=== PATIENT | female | born 1935 | race Caucasian/White ===

== ENCOUNTER 2023-01-15 12:30 | Outpatient (REF) | payer MEDICARE, OTHER, SELFPAY ==
--- NOTE | ~2023-01-15 | US_ITS ---
EXAMINATION: US RETROPERITONEAL LIMITED (RENAL ONLY) CLINICAL INFORMATION: Calculus of kidney. COMPARISON: Renal ultrasound 05/05/2022 and 02/16/2019. CT abdomen and pelvis 07/13/2016. TECHNIQUE: Real-time imaging of the kidneys. FINDINGS: RIGHT KIDNEY: 8.2 x 3.3 x 3.0 cm (SAG x AP x TRV). The kidney is normal in size, contour, and echogenicity. Renal cortical thickness is normal. No hydronephrosis. There is an anechoic cyst mid/lower pole measuring 0.6 x 0.7 x 0.5 cm. There is an echogenic stone or calcification in upper pole measuring 0.5 x 0.4 x 0.6 cm. There is no twinkle artifact. LEFT KIDNEY: 8.7 x 5.0 x 4.3 cm (SAG x AP x TRV). The kidney is normal in size, contour, and echogenicity. Renal cortical thickness is normal. No calculi or focal parenchymal lesions. No hydronephrosis. US/US renal BI IMPRESSION: 1. Nonobstructive echogenic stone versus calcification in upper pole right kidney. 2. There is no caliectasis or hydronephrosis in either kidney.
[2023-01-15 13:10] LABS: MANUAL DIFF FLAG NO
[2023-01-15 14:02] LABS: Basophils Absolute Auto 0.1 X10*3/uL (0.0-0.2); Basophils Percent Auto 1.1 % (0-2); Eosinophils Absolute Auto 0.2 X10*3/uL (0.0-0.4); Hematocrit 44.9 % (37.0-47.0); Imm Gran Abs Auto 0.14 X10*3/uL (0.00-0.03); Imm Gran Pct Auto 1.2 % (0.0-0.4); Lymphocytes Absolute Auto 3.8 X10*3/uL (1.2-4.9); Lymphocytes Percent Auto 32.6 % (20-40); Mean Corpuscular HGB Conc 31.2 g/dl (31.0-35.0); Mean Corpuscular Hemoglobin 25.5 pg (27.0-33.0); Mean Corpuscular Volume 81.8 fL (80.0-98.0); Mean Platelet Volume 10.8 fL (9.4-12.3); Monocytes Absolute Auto 0.9 X10*3/uL (0.1-1.2); Monocytes Percent Auto 7.4 % (2-11); Neutrophils Absolute Auto 6.5 x10*3/uL (2.0-8.3); Neutrophils Percent Auto 55.7 % (45-73); Platelet Count 292 X10*3/uL (160-400); Red Blood Count 5.49 X10*6/uL (4.20-5.50); Red Cell Distribution Width 16.2 % (11.0-16.0); White Blood Count 11.7 X10*3/uL (4.8-10.8)
[2023-01-15 14:31] LABS: Iron 40 mcg/dL (30-160); Percent Iron Saturation 10 % (15-50); Total Iron Binding Capacity 383 mcg/dL (228-428); Unsaturated Iron Binding 343 ug/dL
== END 2023-01-15 12:31 | disposition home or self-care (01) ==
LOC: HO.US 12:30
PROVIDERS: PCP Student in an Organized Health Care Education/Training Program; Visit Provider Urology
DX: N20.0 Calculus of kidney (principal); Z13.89 Encounter for screening for other disorder
CPT/HCPCS: 36415; 76775; 83540; 85025

== ENCOUNTER → 2023-02-18 13:21 | Outpatient (BNVA) | payer MEDICARE, OTHER, SELFPAY | PROVIDERS: PCP Student in an Organized Health Care Education/Training Program; Referring Provider Student in an Organized Health Care Education/Training Program; Visit Provider Internal Medicine Cardiovascular Disease | DX: I35.0 Nonrheumatic aortic (valve) stenosis (principal); I25.10 Atherosclerotic heart disease of native coronary artery without angina pectoris; I95.1 Orthostatic hypotension | CPT/HCPCS: 93005; 99212 ==

== ENCOUNTER → 2023-03-01 13:25 | Outpatient (BNVA) | payer MEDICARE, OTHER, SELFPAY | PROVIDERS: PCP Student in an Organized Health Care Education/Training Program; Visit Provider Urology | DX: N20.0 Calculus of kidney (principal); N32.81 Overactive bladder | CPT/HCPCS: 99212 ==

== ENCOUNTER 2023-04-08 13:04 | Outpatient (REF) | payer MEDICARE, OTHER, SELFPAY ==
[2023-04-08 13:29] LABS: MANUAL DIFF FLAG NO
[2023-04-08 13:49] LABS: INTERNATIONAL NORM RATIO 0.8 (0.9-1.1); Prothrombin Time 9.3 SEC (10.0-13.1)
[2023-04-08 13:53] LABS: Basophils Absolute Auto 0.1 X10*3/uL (0.0-0.2); Eosinophils Absolute Auto 0.3 X10*3/uL (0.0-0.4); Eosinophils Percent Auto 2.4 % (0-4); Hematocrit 48.5 % (37.0-47.0); Hemoglobin 15.2 g/dl (12.0-16.0); Imm Gran Abs Auto 0.19 X10*3/uL (0.00-0.03); Imm Gran Pct Auto 1.7 % (0.0-0.4); Lymphocytes Absolute Auto 4.5 X10*3/uL (1.2-4.9); Lymphocytes Percent Auto 39.5 % (20-40); Mean Corpuscular HGB Conc 31.3 g/dl (31.0-35.0); Mean Corpuscular Hemoglobin 27.4 pg (27.0-33.0); Mean Corpuscular Volume 87.5 fL (80.0-98.0); Mean Platelet Volume 10.7 fL (9.4-12.3); Monocytes Absolute Auto 0.8 X10*3/uL (0.1-1.2); Monocytes Percent Auto 7.1 % (2-11); Neutrophils Absolute Auto 5.5 x10*3/uL (2.0-8.3); Neutrophils Percent Auto 48.3 % (45-73); Platelet Count 291 X10*3/uL (160-400); Red Blood Count 5.54 X10*6/uL (4.20-5.50); Red Cell Distribution Width 18.5 % (11.0-16.0); White Blood Count 11.4 X10*3/uL (4.8-10.8)
[2023-04-08 15:00] LABS: Iron 61 mcg/dL (30-160); Percent Iron Saturation 16 % (15-50); Total Iron Binding Capacity 388 mcg/dL (228-428); Unsaturated Iron Binding 327 ug/dL
[2023-04-08 15:33] LABS: Anion Gap 13 (12-20); Blood Urea Nitrogen 16 mg/dL (9-16); Calcium 9.3 mg/dL (8.4-10.2); Carbon Dioxide 26 mmol/L (22-29); Chloride 108 mmol/L (96-108); Estimated Glomerular Filt Rate 56; Glucose Random 84 mg/dL (60-115); Potassium 3.7 mmol/L (3.3-5.1); Sodium 143 mmol/L (135-145)
== END 2023-04-08 13:05 | disposition home or self-care (01) ==
LOC: HO.10HDL 13:04
PROVIDERS: Absent Provider Nurse Practitioner Family; PCP Family Medicine; Visit Provider Family Medicine
DX: I35.0 Nonrheumatic aortic (valve) stenosis (principal); D50.9 Iron deficiency anemia, unspecified; R06.02 Shortness of breath; I10 Essential (primary) hypertension; Z95.1 Presence of aortocoronary bypass graft
CPT/HCPCS: 36415; 80048; 83540; 85025; 85610

== ENCOUNTER 2023-05-13 12:49 | Outpatient (AMB) | payer MEDICARE, OTHER, SELFPAY ==
--- NOTE | 2023-05-13 13:03 | MHC.OFFVIS ---
Intake Vital Signs 05/13/23 13:04 Height 5 ft 2 in Weight 169 lb 12.095 oz BMI 31.0 BP 120/80 Blood Pressure Location Lt brachial Position Sitting Pulse 92 Intake Visit Reasons: 2 mth f/up Intake Note: 2 month follow-up c/o sob still waiting on TAVR Powerhouse Laborer Required: No Housekeeper Caregiver: Housekeeper Caregiver Present Accompanied by: Son Allergies adhesive tape [ADHESIVE TAPE] Allergy (Unknown, Verified 03/01/23 13:38) RASH iodine [IODINE] Allergy (Unknown, Verified 03/01/23 13:38) UNKNOWN Oxvpzuo-MJO-SxJ Reductase Inhibitor [VMJVRZW-EXB-EJK REDUCTASE INHIBITOR] Allergy (Unknown, Verified 03/01/23 13:38) MUSCLE PAIN IN LEGS amoxicillin [Prevpac] Adverse Reaction (Unknown, Verified 03/01/23 13:38) Unknown aspirin Adverse Reaction (Unknown, Verified 03/01/23 13:38) high doses atenolol Adverse Reaction (Unknown, Verified 03/01/23 13:38) Unknown atorvastatin [Lipitor] Adverse Reaction (Unknown, Verified 03/01/23 13:38) Unknown clarithromycin [Prevpac] Adverse Reaction (Unknown, Verified 03/01/23 13:38) Unknown ezetimibe [Zetia] Adverse Reaction (Unknown, Verified 03/01/23 13:38) Unknown lansoprazole [Prevpac] Adverse Reaction (Unknown, Verified 03/01/23 13:38) Unknown meloxicam [Mobic] Adverse Reaction (Unknown, Verified 03/01/23 13:38) Unknown niacin [Niaspan Extended-Release] Adverse Reaction (Unknown, Verified 03/01/23 13:38) Unknown sertraline [Zoloft] Adverse Reaction (Unknown, Verified 03/01/23 13:38) Unknown adhesive Allergy (Unknown, Uncoded 03/01/23 13:38) rash/ itching GRASS Allergy (Unknown, Uncoded 03/01/23 13:38) ITCHY/SWELLING Effexor Adverse Reaction (Unknown, Uncoded 03/01/23 13:38) Unknown Medication List - Last Reconciled 05/13/23 by Chase Dewitt MD blood sugar diagnostic As directed budesonide-formoterol 160-4.5 mcg/actuation inhalation clopidogrel (Plavix) 75 mg PO DAILY 90 days duloxetine 60 mg PO DAILY gabapentin 300 mg PO BEDTIME hydralazine 20 mg PO BEDTIME insulin aspart U-100 subcut insulin degludec 40 units subcut BEDTIME insulin syringe-needle U-100 As directed lancets As directed metformin 500 mg PO BID metoprolol tartrate 25 mg PO BID pen needle, diabetic As directed prednisone 10 mg PO QAM HPI HPI Comments History of Present Illness Details Tiffani comes for follow-up. She was evaluated by Dr. Burciaga for transcatheter aortic valve replacement. She is still waiting for CT scan of her chest as well as cardiothoracic surgical appointment. She is getting more symptoms with worsening shortness of breath and exertion. Denies any orthopnea, PND, significant leg edema. No lightheadedness, syncope. She had a recent fall which was accidental. She did not lose consciousness. Denies any chest discomfort. [facility] Medical History Aortic stenosis CAD (coronary artery disease) HTN (hypertension) Hyperlipidemia Orthostatic hypotension dysautonomic syndrome Surgical History Hx of CABG Family History Father HTN (hypertension) Mother HTN (hypertension) Review of Systems Const Denies chills, Denies fatigue, Denies fever(s), Denies frequent falls, Denies weakness, Denies weight gain and Denies weight loss ENT Denies dizziness Card Denies chest pain, Denies leg edema, Denies lightheadedness, Denies palpitations, Denies dyspnea, Denies dyspnea on exertion, Denies orthopnea and Denies other (loss of consciousness) Resp Denies cough, Denies dyspnea and Denies dyspnea on exertion GI Denies hematochezia and Denies change in stool character Musc Denies abnormal gait, Denies muscle weakness, Denies numbness, Denies radiating pain into limb and Denies tingling Neuro Denies abnormal gait, Denies dizziness, Denies frequent falls, Denies numbness, Denies tingling and Denies weakness Endo Denies fatigue and Denies palpitations Physical Exam Vital Signs: Last Vital Signs Pulse 92 05/13/23 13:04 BP 120/80 05/13/23 13:04 BMI result Body Mass Index 31.0 Const General: cooperative, healthy appearing, no acute distress and well developed Nutritional Appearance: average body habitus and well nourished Orientation/consciousness: patient oriented x3 Limitations: wheelchair HEENT Head: Yes normocephalic Ears: hearing grossly normal bilaterally Eyes General: appearance normal, both eyes and all related structures Neck Neck: Yes normal visual inspection Chest Chest palpation & inspection: normal inspection of the chest Resp Effort & Inspection: normal respiratory effort and no cough Cardio Jugular venous distension: no JVD Palpation: normal PMI Rate: regular rate Rhythm: regular rhythm Heart sounds: S1 normal heart sound present, S2 normal heart sound present, no click, no gallops and Murmur heart sound present systolic late, decrescendo and crescendo GI Auscultation: normal bowel sounds Skin General skin exam: ecchymosis Neuro General: patient oriented x3 and no focal motor deficits Extrem General: Yes no clubbing, cyanosis or edema and Yes other (Wound on the left arm which was then close together with Steri-Strips) Psych Appearance: grossly normal and well kempt Mental Status: mental status grossly normal Speech and movement: Normal speech and movement present Affect: normal affect Attitude: cooperative Thought process: Normal thought process present Insight: Good insight present (Psych) Judgement: Good judgement present (Psych) Assessment & Plan Assessment & Plan (1) Aortic stenosis: Code(s): I35.0 - Nonrheumatic aortic (valve) stenosis Plan: Aortic stenosis with advancing symptoms. Patient is awaiting complete evaluation for transcatheter aortic valve replacement. I do not think she has a surgical candidate given her advanced age, frailty and redo surgery. Have requested Dr. Burciaga to hopefully schedule her for transcatheter aortic valve replacement as soon as possible once her CT scan as completed to avoid further complication related to her severe aortic stenosis is especially development of heart failure syndrome. Continue aggressive risk factor modification. Advised to call me with worsening symptoms. (2) CAD (coronary artery disease): Code(s): I25.10 - Atherosclerotic heart disease of [place] coronary artery without angina pectoris Plan: CAD with severe [place] three-vessel disease with occluded graft to the circumflex territory. Currently having no symptoms of angina. Continue aggressive medical therapy. Continue Plavix therapy for life. Blood pressure is currently well optimized. Continue aggressive management of diabetes goal hemoglobin A1c less than 7%. Has not tolerated statins in the past has not interested in alternative lipid lowering therapy. (3) Orthostatic hypotension dysautonomic syndrome: Code(s): I95.1 - Orthostatic hypotension Plan: Prior history of markedly labile blood pressure with prior history of orthostatic syncope. Currently her fall was related to accidental fall and not related to syncope. Continue current regimen for her orthostatic hypertension. Advise to avoid salt loading. Advised to maintain adequate hydration. Orthostatic precautions were discussed. Will follow up in the clinic in 6 weeks time, sooner p.r.n.. Thank you for allowing me to partake in her care Coding Level of Care Code Est Pt Level 4 (90332) Diagnoses Aortic stenosis I35.0 CAD (coronary artery disease) I25.10 Orthostatic hypotension dysautonomic syndrome I95.1
[2023-05-13 13:04] VITALS: BP 120/80; PULSE 92; BMI 31.0
== END 2023-05-13 13:38 | disposition home or self-care (01) ==
PROVIDERS: Visit Provider Internal Medicine Cardiovascular Disease
DX: I35.0 Nonrheumatic aortic (valve) stenosis (principal); I25.10 Atherosclerotic heart disease of native coronary artery without angina pectoris; I95.1 Orthostatic hypotension
CPT/HCPCS: 99214

== ENCOUNTER → 2023-05-13 12:49 | Outpatient (BNVA) | payer MEDICARE, OTHER, SELFPAY | PROVIDERS: Visit Provider Internal Medicine Cardiovascular Disease | DX: I35.0 Nonrheumatic aortic (valve) stenosis (principal); I25.10 Atherosclerotic heart disease of native coronary artery without angina pectoris; I10 Essential (primary) hypertension; I95.1 Orthostatic hypotension; Z95.1 Presence of aortocoronary bypass graft | CPT/HCPCS: 99212 ==

== ENCOUNTER 2023-05-31 13:50 | Outpatient (AMB) | payer MEDICARE, OTHER, SELFPAY ==
--- NOTE | 2023-05-31 12:16 | A.OFFVIS_ITS ---
Intake Intake Visit Reasons: 3m/litholink Intake Note: Patient presents today for a telephone follow-up Meds- None Allergies to Antibiotic- No Known Allergies Blood Thinner- None Charge Coordinator Required: No Allergies adhesive tape [ADHESIVE TAPE] Allergy (Unknown, Verified 03/01/23 13:38) RASH iodine [IODINE] Allergy (Unknown, Verified 03/01/23 13:38) UNKNOWN Zbthtvy-VWR-LbU Reductase Inhibitor [AADOLQO-WHI-QCO REDUCTASE INHIBITOR] Allergy (Unknown, Verified 03/01/23 13:38) MUSCLE PAIN IN LEGS amoxicillin [Prevpac] Adverse Reaction (Unknown, Verified 03/01/23 13:38) Unknown aspirin Adverse Reaction (Unknown, Verified 03/01/23 13:38) high doses atenolol Adverse Reaction (Unknown, Verified 03/01/23 13:38) Unknown atorvastatin [Lipitor] Adverse Reaction (Unknown, Verified 03/01/23 13:38) Unknown clarithromycin [Prevpac] Adverse Reaction (Unknown, Verified 03/01/23 13:38) Unknown ezetimibe [Zetia] Adverse Reaction (Unknown, Verified 03/01/23 13:38) Unknown lansoprazole [Prevpac] Adverse Reaction (Unknown, Verified 03/01/23 13:38) Unknown meloxicam [Mobic] Adverse Reaction (Unknown, Verified 03/01/23 13:38) Unknown niacin [Niaspan Extended-Release] Adverse Reaction (Unknown, Verified 03/01/23 13:38) Unknown sertraline [Zoloft] Adverse Reaction (Unknown, Verified 03/01/23 13:38) Unknown adhesive Allergy (Unknown, Uncoded 03/01/23 13:38) rash/ itching GRASS Allergy (Unknown, Uncoded 03/01/23 13:38) ITCHY/SWELLING Effexor Adverse Reaction (Unknown, Uncoded 03/01/23 13:38) Unknown HPI HPI Comments History of Present Illness Details Tiffani is an 87-year-old female who presents today via tele-visit for a follow up for kidney stones. 05/31/2023? She was last seen by me on 03/01/2023. Today I reviewed 24-hour urine results - Total volume 750 mL, Calcium 66 mg; Oxalate 25 mg, Sodium 48, Citrate 514 mg.? I reviewed the renal US results from 01/15/2023 revealed 5-6 mm stone in the upper pole of the right kidney. She mentions urinary leakage into the pads. She reports that her pads were soaked throughout the day. Review of chart: --------Last visit: 03/01/2023? Tiffani is an 87-year-old female who presents to the office for follow-up of kidney stones, OAB, and recurrent UTI's. LV--10/23/22--PCP-Jose Alberto Bryant MD, previously seen by Dr. Cameron in 01/15/2021, CoMorbidity - DM, was on vesicare 5 mg daily for OAB. renal sono 04/2022--- bilateral stones 03/01/23-- The patient states she visited her cad designer drafter for complaints of shortness of breath and was diagnosed with non-functional aortic valve. The patient states she is not taking Vesicare 5 mg daily. She states bladder symptoms are stable. The patient is not takeing vitamin B6. The patient regularly takes calcium and vitamin D supplement. US--01/15/23-- possible stone in the right kidney about 5.6 mm. Evaluation today: UA--Blood: negative, leukocytes: negative. Plan: Nephrolithiasis.? vitamin B6 100 mg once a day. Discussed to consume adequate amount of water daily. The patient can add lemon to the water. Discussed limiting sodium intake. Discussed Low oxalate diet OAB. Currently patient not using bladder medication. Pads prn. behavioral modifications.?Timed voiding Tele-health follow-up in 3 months for discussion of 24 hour test results. 05/31/23-Plan: Scheduled CAT scan in 8-9 months. Tele-health follow up in 10 months. [facility] Medical History Aortic stenosis CAD (coronary artery disease) HTN (hypertension) Hyperlipidemia Orthostatic hypotension dysautonomic syndrome Surgical History Hx of CABG Family History Father HTN (hypertension) Mother HTN (hypertension) Review of Systems Const All systems reviewed & are unremarkable except as noted in HPI and below Reports no additional complaints Eyes Reports no additional complaints ENT Reports no additional complaints Card Denies dyspnea Resp Denies cough and Denies dyspnea GI Reports no additional complaints Reports no additional complaints Musc Reports no additional complaints Skin/Breast Denies rash and Denies unusual bruising Neuro Reports no additional complaints Psych Reports no additional complaints Endo Reports no additional complaints Jerome/Lymph Reports no additional complaints Aller/Immun Reports no additional complaints Results Reviewed Results Reviewed: Date of Service: 01/15/23 EXAMINATION: US RETROPERITONEAL LIMITED (RENAL ONLY) CLINICAL INFORMATION: Calculus of kidney. COMPARISON: Renal ultrasound 05/05/2022 and 02/16/2019. CT abdomen and pelvis 07/13/2016. FINDINGS: RIGHT KIDNEY: 8.2 x 3.3 x 3.0 cm (SAG x AP x TRV). The kidney is normal in size, contour, and echogenicity. Renal cortical thickness is normal. No hydronephrosis. There is an anechoic cyst mid/lower pole measuring 0.6 x 0.7 x 0.5 cm. There is an echogenic stone or calcification in upper pole measuring 0.5 x 0.4 x 0.6 cm. There is no twinkle artifact. LEFT KIDNEY: 8.7 x 5.0 x 4.3 cm (SAG x AP x TRV). The kidney is normal in size, contour, and echogenicity. Renal cortical thickness is normal. No calculi or focal parenchymal lesions. No hydronephrosis. IMPRESSION: 1. Nonobstructive echogenic stone versus calcification in upper pole right kidney. 2. There is no caliectasis or hydronephrosis in either kidney. Assessment & Plan Assessment & Plan (1) Urinary incontinence: Code(s): R32 - Unspecified urinary incontinence (2) Right kidney stone: Code(s): N20.0 - Calculus of kidney Plan Scheduled CAT scan in 8-9 months. Tele-health follow up in 10 months. Orders: Orders CT abdomen pelvis wo IV con 9 Months N20.0 - Calculus of kidney Patient Instructions: The patient had an opportunity to ask questions regarding treatment plan. All questions were answered. Imaging, Laboratory studies and physical exam results were discussed and reviewed in detail. No major barriers to understanding were identified. The patient expressed understanding and agreement with the above treatment plan.? ? ? The patient is aware they should contact our office by phone for worsening of their current condition or the appearance of new symptoms. Compliance is encouraged with any medications and followup testing that is ordered.? ? ? It is a privilege to be allowed the opportunity to participate in the urologic care of your patient. If you have any questions or concerns regarding treatment for the above conditions please do not hesitate to contact me. The office telephone contact is [phone].? ? ? This note is constructed in part using voice recognition software. While every effort has been made to ensure accuracy plant operator control room operator errors may have been included.? ? ? Yours sincerely,? ? ? Néstor Vernon MD? ? Telehealth Telehealth Location of provider rendering services: practice address Location of patient: address on file Patient Identification confirmed using: Name, : Yes Telehealth method: voice only Patient verbally consented to treatment: Yes Patient verbally consented to billing insurance company: Yes Patient informed of any privacy concerns related to visit: Yes Minutes spent on Phone/Video with Pt.: 15 Coding Level of Care Code Tele Est Pt Level 3 (23062) Diagnoses Urinary incontinence R32 Right kidney stone N20.0
== END 2023-05-31 14:40 | disposition home or self-care (01) ==
LOC: HO.HUSH 13:51
PROVIDERS: PCP Family Medicine; Visit Provider Urology
DX: R32 Unspecified urinary incontinence (principal); N20.0 Calculus of kidney
CPT/HCPCS: 99442

== ENCOUNTER 2023-07-20 13:36 | Outpatient (AMB) | payer MEDICARE, OTHER, SELFPAY ==
--- NOTE | 2023-07-20 13:39 | MHC.OFFVIS ---
Intake Vital Signs 07/20/23 13:40 Height 5 ft 2 in Weight 165 lb 5.547 oz BMI 30.2 BP 120/62 Blood Pressure Location Lt brachial Position Sitting Pulse 88 Intake Visit Reasons: f/up Intake Note: Follow-up feeling ok Electrical Engineering Technician Required: No Sap Functional Analyst: Sap Functional Analyst Present Accompanied by: Son Allergies adhesive tape [ADHESIVE TAPE] Allergy (Unknown, Verified 03/01/23 13:38) RASH iodine [IODINE] Allergy (Unknown, Verified 03/01/23 13:38) UNKNOWN Kejguln-LVP-AvV Reductase Inhibitor [CLILTOC-COG-ILP REDUCTASE INHIBITOR] Allergy (Unknown, Verified 03/01/23 13:38) MUSCLE PAIN IN LEGS amoxicillin [Prevpac] Adverse Reaction (Unknown, Verified 03/01/23 13:38) Unknown aspirin Adverse Reaction (Unknown, Verified 03/01/23 13:38) high doses atenolol Adverse Reaction (Unknown, Verified 03/01/23 13:38) Unknown atorvastatin [Lipitor] Adverse Reaction (Unknown, Verified 03/01/23 13:38) Unknown clarithromycin [Prevpac] Adverse Reaction (Unknown, Verified 03/01/23 13:38) Unknown ezetimibe [Zetia] Adverse Reaction (Unknown, Verified 03/01/23 13:38) Unknown lansoprazole [Prevpac] Adverse Reaction (Unknown, Verified 03/01/23 13:38) Unknown meloxicam [Mobic] Adverse Reaction (Unknown, Verified 03/01/23 13:38) Unknown niacin [Niaspan Extended-Release] Adverse Reaction (Unknown, Verified 03/01/23 13:38) Unknown sertraline [Zoloft] Adverse Reaction (Unknown, Verified 03/01/23 13:38) Unknown adhesive Allergy (Unknown, Uncoded 03/01/23 13:38) rash/ itching GRASS Allergy (Unknown, Uncoded 03/01/23 13:38) ITCHY/SWELLING Effexor Adverse Reaction (Unknown, Uncoded 03/01/23 13:38) Unknown Medication List - Last Reconciled 07/20/23 by Chase Dewitt MD acetaminophen 500 mg PO Q6H PRN blood sugar diagnostic As directed budesonide-formoterol 160-4.5 mcg/actuation inhalation clopidogrel (Plavix) 75 mg PO DAILY 90 days duloxetine 60 mg PO DAILY gabapentin 300 mg PO BEDTIME hydralazine 20 mg PO BEDTIME insulin aspart U-100 subcut insulin degludec 40 units subcut BEDTIME insulin syringe-needle U-100 As directed lancets As directed metformin 500 mg PO BID metoprolol tartrate 25 mg PO BID pen needle, diabetic As directed prednisone 10 mg PO QAM pyridoxine (vitamin B6) 50 mg PO DAILY tramadol 50 mg PO BID PRN HPI HPI Comments History of Present Illness Details Tiffani comes for follow-up after recent transcatheter aortic valve replacement on June 24. Since then she is doing extremely well from cardiac perspective with much improved symptoms of shortness of breath. However she is currently still working on improving her overall functional capacity. She has weakness in the legs when she tries to walk but she tries to push herself and as per the son who accompanied her she has been improving gradually. She denies any lightheadedness, syncope. No orthopnea, PND, leg edema. Taking all her medications. Her echocardiogram scheduled for tomorrow. 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 Family History Father HTN (hypertension) Mother HTN (hypertension) Review of Systems Const Denies chills, Denies fatigue, Denies fever(s), Denies frequent falls, Denies weakness, Denies weight gain and Denies weight loss ENT Denies dizziness Card Denies chest pain, Denies leg edema, Denies lightheadedness, Denies palpitations, Denies dyspnea, Denies dyspnea on exertion, Denies orthopnea and Denies other (loss of consciousness) Resp Denies cough, Denies dyspnea and Denies dyspnea on exertion GI Denies hematochezia and Denies change in stool character Musc Denies abnormal gait, Denies muscle weakness, Denies numbness, Denies radiating pain into limb and Denies tingling Neuro Denies abnormal gait, Denies dizziness, Denies frequent falls, Denies numbness, Denies tingling and Denies weakness Endo Denies fatigue and Denies palpitations Physical Exam Vital Signs: Last Vital Signs Pulse 88 07/20/23 13:40 BP 120/62 07/20/23 13:40 BMI result Body Mass Index 30.2 Const General: cooperative, healthy appearing, no acute distress and well developed Nutritional Appearance: average body habitus and other (Frail elderly woman) Orientation/consciousness: patient oriented x3 Limitations: wheelchair HEENT Head: Yes normocephalic Ears: hearing grossly normal bilaterally Eyes General: appearance normal, both eyes and all related structures Neck Neck: Yes normal visual inspection Chest Chest palpation & inspection: normal inspection of the chest Resp Effort & Inspection: normal respiratory effort and no cough Cardio Jugular venous distension: no JVD Palpation: normal PMI Rate: regular rate Rhythm: regular rhythm Heart sounds: S1 normal heart sound present, S2 normal heart sound present, no click, no gallops and no murmurs GI Auscultation: normal bowel sounds Skin General skin exam: ecchymosis Neuro General: patient oriented x3 and no focal motor deficits Extrem General: Yes no clubbing, cyanosis or edema and Yes other (Wound on the left arm which was then close together with Steri-Strips) Psych Appearance: grossly normal and well kempt Mental Status: mental status grossly normal Speech and movement: Normal speech and movement present Affect: normal affect Attitude: cooperative Thought process: Normal thought process present Insight: Good insight present (Psych) Judgement: Good judgement present (Psych) Assessment & Plan Assessment & Plan (1) S/P TAVR (transcatheter aortic valve replacement): Code(s): Z95.2 - Presence of prosthetic heart valve Plan: Status post transcatheter aortic valve replacement with significantly improve cardiac symptoms. She is feeling a lot better at this point time with much improved shortness of breath. However currently appears to be deconditioned and not able to walk more due to overall weakness. She is working on it. Recommend to continue to pursue physical therapy and once she improves recommend phase 2 cardiac rehabilitation. Continue current antiplatelet therapy with Plavix. SBE prophylaxis as per ACC/[place] guidelines. Baseline echocardiogram which is scheduled for tomorrow. (2) CAD (coronary artery disease): Code(s): I25.10 - Atherosclerotic heart disease of [place] coronary artery without angina pectoris Plan: CAD status post remote coronary artery bypass grafting with possibly occluded graft to the OM branch with patent [place], patent graft to the RCA as well as patent graft to the diagonal branch. Patient is currently not having any symptoms of angina. Continue lifelong Plavix therapy. She is not currently on statin therapy is not tolerated that well and she is not interested in alternative therapy at this point time. Continue aggressive blood pressure control which appears to be well controlled at this point in time, has had issues with labile blood pressure orthostatic hypertension in the past. Advised to increase and maintain adequate fluid intake. Follow up in the clinic in 6 months time, sooner p.r.n.. Thank you for allowing me to partake in her care Coding Level of Care Code Est Pt Level 4 (86695) Diagnoses S/P TAVR (transcatheter aortic valve replacement) Z95.2 CAD (coronary artery disease) I25.10
[2023-07-20 13:40] VITALS: BP 120/62; PULSE 88; BMI 30.2
== END 2023-07-20 14:01 | disposition home or self-care (01) ==
PROVIDERS: PCP Family Medicine; Visit Provider Internal Medicine Cardiovascular Disease
DX: Z95.2 Presence of prosthetic heart valve (principal); I25.10 Atherosclerotic heart disease of native coronary artery without angina pectoris
CPT/HCPCS: 99214

== ENCOUNTER → 2023-07-20 13:36 | Outpatient (BNVA) | payer MEDICARE, OTHER, SELFPAY | PROVIDERS: PCP Family Medicine; Visit Provider Internal Medicine Cardiovascular Disease | DX: I25.10 Atherosclerotic heart disease of native coronary artery without angina pectoris (principal); Z95.2 Presence of prosthetic heart valve; Z79.02 Long term (current) use of antithrombotics/antiplatelets | CPT/HCPCS: 99212 ==

== ENCOUNTER → 2023-07-21 11:00 | Outpatient (REF) | payer MEDICARE, OTHER, SELFPAY | LOC: HO.CARD 11:00 | PROVIDERS: PCP Family Medicine; Visit Provider Internal Medicine Cardiovascular Disease | DX: Z95.2 Presence of prosthetic heart valve (principal) | CPT/HCPCS: 93306 ==

== ENCOUNTER → 2023-07-21 11:04 | Outpatient (BNV) | payer MEDICARE, OTHER, SELFPAY | PROVIDERS: PCP Family Medicine; Visit Provider Internal Medicine | DX: I34.0 Nonrheumatic mitral (valve) insufficiency (principal); I34.81 Nonrheumatic mitral (valve) annulus calcification | CPT/HCPCS: 93306 ==

== ENCOUNTER 2023-09-02 12:28 | Outpatient (REF) | payer MEDICARE, OTHER, SELFPAY ==
[2023-09-02 12:46] LABS: MANUAL DIFF FLAG NO
[2023-09-02 13:02] LABS: Basophils Absolute Auto 0.1 X10*3/uL (0.0-0.2); Basophils Percent Auto 0.9 % (0-2); Eosinophils Absolute Auto 0.5 X10*3/uL (0.0-0.4); Eosinophils Percent Auto 3.8 % (0-4); Hematocrit 34.1 % (37.0-47.0); Hemoglobin 9.9 g/dl (12.0-16.0); Imm Gran Abs Auto 0.14 X10*3/uL (0.00-0.03); Imm Gran Pct Auto 1.2 % (0.0-0.4); Lymphocytes Absolute Auto 3.8 X10*3/uL (1.2-4.9); Lymphocytes Percent Auto 31.9 % (20-40); Mean Corpuscular Hemoglobin 20.8 pg (27.0-33.0); Mean Corpuscular Volume 71.8 fL (80.0-98.0); Mean Platelet Volume 10.8 fL (9.4-12.3); Neutrophils Absolute Auto 6.5 x10*3/uL (2.0-8.3); Neutrophils Percent Auto 54.2 % (45-73); Platelet Count 333 X10*3/uL (160-400); Red Blood Count 4.75 X10*6/uL (4.20-5.50); Red Cell Distribution Width 15.9 % (11.0-16.0); White Blood Count 11.9 X10*3/uL (4.8-10.8)
[2023-09-02 13:49] LABS: Anion Gap 9 (12-20); Blood Urea Nitrogen 16 mg/dL (9-16); Carbon Dioxide 24 mmol/L (22-29); Chloride 109 mmol/L (96-108); Estimated Glomerular Filt Rate 60; Potassium 4.3 mmol/L (3.3-5.1); Sodium 138 mmol/L (135-145)
== END 2023-09-02 12:29 | disposition home or self-care (01) ==
LOC: HO.LAB 12:28
PROVIDERS: PCP Family Medicine; Visit Provider Family Medicine
DX: I10 Essential (primary) hypertension (principal); R06.02 Shortness of breath
CPT/HCPCS: 36415; 80051; 82565; 84520; 85025

== ENCOUNTER 2023-12-03 13:02 | Outpatient (REF) | payer MEDICARE, OTHER, SELFPAY ==
[2023-12-03 13:16] LABS: MANUAL DIFF FLAG NO
[2023-12-03 14:46] LABS: Basophils Absolute Auto 0.1 X10*3/uL (0.0-0.2); Eosinophils Absolute Auto 0.4 X10*3/uL (0.0-0.4); Hematocrit 36.7 % (37.0-47.0); Hemoglobin 10.9 g/dl (12.0-16.0); Imm Gran Abs Auto 0.13 X10*3/uL (0.00-0.03); Lymphocytes Absolute Auto 4.4 X10*3/uL (1.2-4.9); Lymphocytes Percent Auto 32.5 % (20-40); Mean Corpuscular HGB Conc 29.7 g/dl (31.0-35.0); Mean Corpuscular Hemoglobin 21.5 pg (27.0-33.0); Mean Corpuscular Volume 72.5 fL (80.0-98.0); Mean Platelet Volume 11.1 fL (9.4-12.3); Monocytes Absolute Auto 0.9 X10*3/uL (0.1-1.2); Monocytes Percent Auto 6.7 % (2-11); Neutrophils Absolute Auto 7.6 x10*3/uL (2.0-8.3); Neutrophils Percent Auto 55.8 % (45-73); Platelet Count 353 X10*3/uL (160-400); Red Blood Count 5.06 X10*6/uL (4.20-5.50); Red Cell Distribution Width 19.6 % (11.0-16.0); White Blood Count 13.7 X10*3/uL (4.8-10.8)
[2023-12-03 15:02] LABS: Estimated Average Glucose 169 mg/dL; Hemoglobin A1c % 7.5 % (<6.0)
[2023-12-03 15:06] LABS: Anion Gap 15 (12-20); Blood Urea Nitrogen 18 mg/dL (9-16); Carbon Dioxide 23 mmol/L (22-29); Chloride 106 mmol/L (96-108); Estimated Glomerular Filt Rate 55; Glucose Fasting 95 mg/dL (60-99); Iron 18 mcg/dL (30-160); Percent Iron Saturation 5 % (15-50); Sodium 140 mmol/L (135-145); Total Iron Binding Capacity 399 mcg/dL (228-428); Unsaturated Iron Binding 381 ug/dL
== END 2023-12-03 13:03 | disposition home or self-care (01) ==
LOC: HO.LAB 13:02
PROVIDERS: PCP Family Medicine; Visit Provider Family Medicine
DX: I10 Essential (primary) hypertension (principal); E11.9 Type 2 diabetes mellitus without complications; D64.9 Anemia, unspecified; I35.0 Nonrheumatic aortic (valve) stenosis
CPT/HCPCS: 36415; 80051; 82565; 82947; 83036; 83540; 84520; 85025

== ENCOUNTER 2024-02-10 12:53 | Outpatient (AMB) | payer MEDICARE, OTHER, SELFPAY ==
[2024-02-10 13:30] VITALS: BP 140/84; PULSE 84; BMI 29.4
--- NOTE | 2024-02-10 13:30 | A.OFFVIS_ITS ---
Vital Signs 02/10/24 13:30 Height 5 ft 2 in Weight 160 lb 14.999 oz BMI 29.4 BP 140/84 H Blood Pressure Location Lt brachial Position Sitting Pulse 84 Intake Visit Reasons: 6 mth f/up Intake Note: 6 month follow-up with ekg feeling ok Explosive Operator Grenade Required: No Immersion Metal Cleaner: Immersion Metal Cleaner Present Accompanied by: Son Allergies adhesive tape [ADHESIVE TAPE] Allergy (Unknown, Verified 03/01/23 13:38) RASH iodine [IODINE] Allergy (Unknown, Verified 03/01/23 13:38) UNKNOWN Robzxip-YAD-VwH Reductase Inhibitor [HRZZJMO-ZEF-ORA REDUCTASE INHIBITOR] Allergy (Unknown, Verified 03/01/23 13:38) MUSCLE PAIN IN LEGS amoxicillin [Prevpac] Adverse Reaction (Unknown, Verified 03/01/23 13:38) Unknown aspirin Adverse Reaction (Unknown, Verified 03/01/23 13:38) high doses atenolol Adverse Reaction (Unknown, Verified 03/01/23 13:38) Unknown atorvastatin [Lipitor] Adverse Reaction (Unknown, Verified 03/01/23 13:38) Unknown clarithromycin [Prevpac] Adverse Reaction (Unknown, Verified 03/01/23 13:38) Unknown ezetimibe [Zetia] Adverse Reaction (Unknown, Verified 03/01/23 13:38) Unknown lansoprazole [Prevpac] Adverse Reaction (Unknown, Verified 03/01/23 13:38) Unknown meloxicam [Mobic] Adverse Reaction (Unknown, Verified 03/01/23 13:38) Unknown niacin [Niaspan Extended-Release] Adverse Reaction (Unknown, Verified 03/01/23 13:38) Unknown sertraline [Zoloft] Adverse Reaction (Unknown, Verified 03/01/23 13:38) Unknown adhesive Allergy (Unknown, Uncoded 03/01/23 13:38) rash/ itching GRASS Allergy (Unknown, Uncoded 03/01/23 13:38) ITCHY/SWELLING Effexor Adverse Reaction (Unknown, Uncoded 03/01/23 13:38) Unknown Medication List - Last Reconciled 02/10/24 by Chase Dewitt MD acetaminophen 500 mg PO Q6H PRN amlodipine 2.5 mg PO DAILY blood sugar diagnostic As directed budesonide-formoterol 160-4.5 mcg/actuation inhalation clopidogrel (Plavix) 75 mg PO DAILY 90 days duloxetine 60 mg PO DAILY gabapentin 300 mg PO BEDTIME insulin aspart U-100 subcut insulin degludec 40 units subcut BEDTIME insulin syringe-needle U-100 As directed lancets As directed metformin 500 mg PO BID metoprolol tartrate 25 mg PO BID pen needle, diabetic As directed prednisone 10 mg PO QAM pyridoxine (vitamin B6) 50 mg PO DAILY tramadol 50 mg PO BID PRN HPI Comments Details: Tiffani comes for follow-up, accompanied by her son. She comes in a wheelchair. She fell down recently while she was trying to package pick up something from the floor . Did not had any major injury. However noticing her blood pressure is significantly elevated up to systolic 180. Hydralazine was stopped and amlodipine 2.5 mg was started. She says a blood pressure still remains elevated although she only takes blood pressure once a day. Her sleep cycle is different. She sleeps at 03:00 in the morning and sleeps up to 14:00 in the afternoon. She takes her amlodipine at about 18:00 which is about mid morning time in general. She has not had any syncopal episodes. No lightheaded episodes. No orthopnea, PND, leg edema. No exertional chest pain. No pr olonged palpitations irregular heartbeat. 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 Family History Father HTN (hypertension) Mother HTN (hypertension) Review of Systems Const Denies chills, Denies fatigue, Denies fever(s), Denies frequent falls, Denies weakness, Denies weight gain and Denies weight loss ENT Denies dizziness Card Denies chest pain, Denies leg edema, Denies lightheadedness, Denies palpitations, Denies dyspnea, Denies dyspnea on exertion, Denies orthopnea and Denies other (loss of consciousness) Resp Denies cough, Denies dyspnea and Denies dyspnea on exertion GI Denies hematochezia and Denies change in stool character Musc Denies abnormal gait, Denies muscle weakness, Denies numbness, Denies radiating pain into limb and Denies tingling Neuro Denies abnormal gait, Denies dizziness, Denies frequent falls, Denies numbness, Denies tingling and Denies weakness Endo Denies fatigue and Denies palpitations Physical Exam Vital Signs: Last Vital Signs Pulse 84 02/10/24 13:30 BP 140/84 H 02/10/24 13:30 BMI result Body Mass Index 29.4 Const General: cooperative, healthy appearing, no acute distress and well developed Nutritional Appearance: average body habitus and other (Frail elderly woman) Orientation/consciousness: patient oriented x3 Limitations: wheelchair HEENT Head: Yes normocephalic Ears: hearing grossly normal bilaterally Eyes General: appearance normal, both eyes and all related structures Neck Neck: Yes normal visual inspection Chest Chest palpation & inspection: normal inspection of the chest Resp Effort & Inspection: normal respiratory effort and no cough Cardio Jugular venous distension: no JVD Palpation: normal PMI Rate: regular rate Rhythm: regular rhythm Heart sounds: S1 normal heart sound present, S2 normal heart sound present, no click, no gallops and no murmurs GI Auscultation: normal bowel sounds Skin General skin exam: ecchymosis Neuro General: patient oriented x3 and no focal motor deficits Extrem General: Yes no clubbing, cyanosis or edema and Yes other (Wound on the left arm which was then close together with Steri-Strips) Psych Appearance: grossly normal and well kempt Mental Status: mental status grossly normal Speech and movement: Normal speech and movement present Affect: normal affect Attitude: cooperative Thought process: Normal thought process present Insight: Good insight present (Psych) Judgement: Good judgement present (Psych) Office Procedures EKG Details: EKG shows normal sinus rhythm with PACs with nonspecific ST T wave changes [id number], Complete Assessment & Plan Assessment & Plan (1) S/P TAVR (transcatheter aortic valve replacement): Code(s): Z95.2 - Presence of prosthetic heart valve Category: Surgical Plan: Status post transcatheter aortic valve replacement for severe aortic stenosis, clinically working well. Continue Plavix therapy. SBE prophylaxis as per ACC/[facility] guidelines. Blood pressure needs to be better control, see below. Could not tolerate statin therapy in the past and is not interested in other forms of therapy at this point time. (2) CAD (coronary artery disease): Code(s): I25.10 - Atherosclerotic heart disease of [place] coronary artery without angina pectoris Category: Medical Plan: CAD status post remote coronary artery bypass grafting with no symptoms of angina at current point time. No further workup is indicated given her advanced age and frailty. Continue Plavix therapy for anticoagulation. Better blood pressure control is needed, see below. Not on any lipid modification due to intolerance to statins. (3) Orthostatic hypotension dysautonomic syndrome: Code(s): I95.1 - Orthostatic hypotension Category: Medical Plan: Patient with elevated blood pressure at this point time given most likely due to autonomic dysfunction as well as significant vascular disease and diffuse disease. She has had history of orthostatic hypotension in the past which makes this difficult. Advised to monitor blood pressure more regularly including her time of waking up and sleeping at nighttime along with various times a blood pressure. Will further manage blood pressure according to the data. Advise adequate oral hydration. Avoidance of salt loading was discussed. Continue cu rrent amlodipine therapy. Orthostatic precautions were discussed. Will follow up in the clinic in 6 months time after an echocardiogram. Thank you for allowing me to partake in her care Orders: Orders CA echo transthoracic complete 6 Months Z95.2 - Presence of prosthetic heart valve Coding Level of Care Code Est Pt Level 4 (02965) Diagnoses S/P TAVR (transcatheter aortic valve replacement) Z95.2 CAD (coronary artery disease) I25.10 Orthostatic hypotension dysautonomic syndrome I95.1 CPT Codes EKG - CPT: 00893-[id number], Complete ([id number])
== END 2024-02-10 14:01 | disposition home or self-care (01) ==
PROVIDERS: PCP Family Medicine; Visit Provider Internal Medicine Cardiovascular Disease
DX: Z95.2 Presence of prosthetic heart valve (principal); I25.10 Atherosclerotic heart disease of native coronary artery without angina pectoris; I95.1 Orthostatic hypotension
CPT/HCPCS: 93010; 99214

== ENCOUNTER → 2024-02-10 12:53 | Outpatient (BNVA) | payer MEDICARE, OTHER, SELFPAY | PROVIDERS: PCP Family Medicine; Visit Provider Internal Medicine Cardiovascular Disease | DX: I25.10 Atherosclerotic heart disease of native coronary artery without angina pectoris (principal); I95.1 Orthostatic hypotension; Z95.2 Presence of prosthetic heart valve | CPT/HCPCS: 93005; 99212 ==

== ENCOUNTER 2024-02-14 13:41 | Outpatient (REF) | payer MEDICARE, OTHER, SELFPAY ==
[2024-02-14 14:55] LABS: Anion Gap 12 (12-20); Blood Urea Nitrogen 19 mg/dL (9-16); Carbon Dioxide 26 mmol/L (22-29); Chloride 104 mmol/L (96-108); Estimated Glomerular Filt Rate 58; Glucose Fasting 120 mg/dL (60-99); Iron 26 mcg/dL (30-160); Percent Iron Saturation 7 % (15-50); Potassium 3.8 mmol/L (3.3-5.1); Sodium 138 mmol/L (135-145); Total Iron Binding Capacity 374 mcg/dL (228-428); Unsaturated Iron Binding 348 ug/dL
[2024-02-14 15:07] LABS: Estimated Average Glucose 180 mg/dL; Hemoglobin A1c % 7.9 % (<6.0)
== END 2024-02-14 13:42 | disposition home or self-care (01) ==
LOC: HO.LAB 13:41
PROVIDERS: PCP Family Medicine; Visit Provider Family Medicine
DX: E11.9 Type 2 diabetes mellitus without complications (principal); I10 Essential (primary) hypertension; I50.9 Heart failure, unspecified
CPT/HCPCS: 36415; 80051; 82565; 82947; 83036; 83540; 84520

== ENCOUNTER 2024-02-17 12:18 | Outpatient (REF) | payer MEDICARE, OTHER, SELFPAY ==
[2024-02-17 14:01] LABS: Creatinine Urine 62.94 mg/dL
== END 2024-02-17 12:19 | disposition home or self-care (01) ==
LOC: HO.LNP 12:18
PROVIDERS: Visit Provider Family Medicine
DX: E11.9 Type 2 diabetes mellitus without complications (principal); I10 Essential (primary) hypertension; D50.9 Iron deficiency anemia, unspecified
CPT/HCPCS: 82043; 82570